=== PATIENT | female | born 1990 | race Caucasian/White ===

== ENCOUNTER 2018-04-12 12:07 | Emergency (ER) | payer MEDICAID ==
[~2018-04-12] VITALS: Ht 167.6 cm; Wt 68.0 kg
[2018-04-12 12:25] VITALS: BP 127/60
== END 2018-04-12 12:53 | disposition home or self-care (01) ==
LOC: ER 12:08
DX: S70.361A Insect bite (nonvenomous), right thigh, initial encounter (principal); L08.9 Local infection of the skin and subcutaneous tissue, unspecified; W57.XXXA Bitten or stung by nonvenomous insect and other nonvenomous arthropods, initial encounter; Y93.89 Activity, other specified; Y92.89 Other specified places as the place of occurrence of the external cause; Y99.8 Other external cause status
CPT/HCPCS: 99283; A4606; Z7610